=== PATIENT | male | born 1980 | race Two or more races ===

== ENCOUNTER → 2019-03-19 | Emergency (ER) | payer MEDICAID ==
[~2019-03-19] VITALS: Ht 177.8 cm; Wt 98.9 kg
[~2019-03-19] MED LIST: DEXAMETHASONE SOD PHOSPHATE 10 MG/ML VIAL ONE; HYDROCODONE/APAP 10/325MG 1 EA TABLET ONE; HYDROMORPHONE 1 MG/1 ML DISP.SYRIN ONE; KETOROLAC TROMETHAMINE INJ 30 MG/ML VIAL ONE
[2019-03-19 13:35] VITALS: BP 144/68
--- NOTE | 2019-03-19 13:41 | NUR ---
pt biba for lower back pain, a/o x4, v/s stable.
[2019-03-19] MEDS: HYDROCODONE/APAP 10/325MG 1 EA TABLET PO ONE (14:13)
[2019-03-19] MEDS: KETOROLAC TROMETHAMINE INJ 60 MG/2 ML VIAL IM ONE (14:13)
[2019-03-19] MEDS: DEXAMETHASONE SOD PHOSPHATE 4 MG/ML VIAL IM ONE (14:13)
[2019-03-19] MEDS: HYDROMORPHONE INJ 0.5 MG/0.5 ML SYRINGE IM ONE (15:18)
== END | disposition home or self-care (01) ==
LOC: ER 12:40
DX: M54.5 Low back pain (principal); G89.29 Other chronic pain; Z98.890 Other specified postprocedural states
CPT/HCPCS: 96372 ×3; 99283; J1100; J1170; J1885